=== PATIENT | female | born 1975 | race African-American/Black ===

== ENCOUNTER 2017-05-30 16:15 | Emergency (ER) | payer OTHER ==
[~2017-05-30] VITALS: Ht 167.6 cm; Wt 90.0 kg
[~2017-05-30 16:15] MED LIST: NORTRIPTYLINE
[2017-05-30 16:42] VITALS: BP 138/88
== END 2017-05-30 19:35 | disposition left against medical advice (07) ==
LOC: ER 16:15
DX: R73.9 Hyperglycemia, unspecified (principal); Z53.21 Procedure and treatment not carried out due to patient leaving prior to being seen by health care provider
CPT/HCPCS: 82962